=== PATIENT | male | born 1995 | race Caucasian/White ===

== ENCOUNTER 2018-10-25 20:00 | Emergency (ER) | payer MEDICAID, OTHER ==
[~2018-10-25] VITALS: Ht 170.2 cm; Wt 81.5 kg
[2018-10-25 20:06] VITALS: Ht 170.2 cm; Wt 81.5 kg
[2018-10-25] MEDS ORDERED: morphine LIQ (10 MG/5 ML) CUP PO ONE (20:30)
--- NOTE | 2018-10-25 21:40 | ERD ---
ER Documentation Chief Complaint Chief Complaint EDWARD FELL, HIT NOSE TODAY [id number] AGO HPI 23-year-old male, presents to the emergency department, brought in by family, complaining of nasal pain and bleeding after a mechanical fall that occurred approximately 30 minutes prior to arrival. The patient denies loss of consciousness, no blurred vision. The pain is dull, constant, 6/10. ROS All systems reviewed and are negative except as per history of present illness. Medications Home Meds Active Scripts Ibuprofen* (Motrin*) 600 Mg Tab, 600 MG PO Q8 for 5 Days, #15 TAB Prov:ADRIEL TAM MD 10/25/18 Oxymetazoline Hcl* (Afrin [place]*) 0.05% - 15 Ml [place], 2 SPRAYS NASAL BID for 5 Days, #1 EA to each nostril Prov:ADRIEL TAM MD 10/25/18 Allergies Allergies: Coded Allergies: No Known Allergy (Unverified , 10/25/18) PMhx/Soc Medical and Surgical Hx: pt denies Medical Hx, pt denies Surgical Hx Hx Alcohol Use: Yes Hx Substance Use: No Hx Tobacco Use: No Smoking Status: Current every day smoker FmHx Family History: diabetes; No coronary disease Physical Exam Vitals Vital Signs Date Temp Pulse Resp B/P (MAP) Pulse Ox O2 O2 Flow FiO2 Time Delivery Rate 10/25/18 98.7 79 17 125/78 99 Room Air 22:21 (94) 10/25/18 99.2 95 19 136/81 99 20:06 (99) Physical Exam Const: No acute distress Head: Right periorbital ecchymosis. Eyes: Normal Conjunctiva ENT: Severe deformity of the nasal dorsum, with mild bilateral epistaxis. Neck: Full range of motion. No meningismus. Resp: Clear to auscultation bilaterally Cardio: Regular rate and rhythm, no murmurs Abd: Soft, non tender, non distended. Normal bowel sounds Skin: No petechiae or rashes Back: No midline or flank tenderness Ext: No cyanosis, or edema Neur: Awake and alert Psych: Normal Mood and Affect Results 24 hrs Current Medications Medications Dose Sig/Abelino Start Time Status Last (Trade) Ordered Route PRN Stop Time Admin Dose Reason Admin Morphine 10 mg ONCE ONCE 10/25/18 DC 10/25/18 Sulfate PO 20:30 10/25/18 20:44 (morphine) 20:31 DIAGNOSTIC IMAGING REPORT Patient: ALEXANDREA YA : 1995 Age: 23 Sex: M MR #: [id number] DOS: 10/25/182028 Ordering MD: ADRIEL TAM MD Location: [facility] Room/Bed: PROCEDURE: CT facial bones without contrast CLINICAL INDICATION: Trauma with pain. TECHNIQUE: A CT of the facial bones was performed utilizing high-resolution axial images. Sagittal and coronal reformatted images were made. The CTDIvol is number mGy and the DLP is number mGy-cm. 3-D reconstructions were not performed. One or more the following dose reduction techniques were utilized: Automated exposure control, adjustment of the mA and / or kV according to patient's size, or use of iterative reconstruction technique. DICOM images are available. COMPARISON: None. FINDINGS: The zygomatic arches are intact. The orbital rims are intact. There is a fracture of the nasal bones involving both nasal ala and the distal bridge of the nose. The nasal septum is fractured anteriorly. Posteriorly, there is prominent rightward displacement of the nasal septum. This does not appear to be due to the current trauma and is either developmental or secondary to older trauma. The fragment of the right nasal ala is depressed medially. The left nasal ala are fracture is not displaced. The right nasal airway is severely stenosed in its midportion. The mandible is intact. The kerns of the paranasal sinuses are intact. The paranasal sinuses are clear. Soft tissue swelling is present around the nose Dental caries are evident. IMPRESSION: 1. Fractures of the nasal bones with prominent stenosis of the right nasal airway, probably developmental or secondary to an older injury. 2. Dental caries. RPTAT:AAJJ Physician Lizy Date Time Electronically viewed and signed by Physician Lizy on 10/25/2018 21:30 GW/ CC: ADRIEL TAM MD [id number] Procedures/MDM Differential diagnosis include but not limited to: Soft tissue contusion, sprain/strain, muscle spasm, fracture. Neurovascular exam grossly intact. Physical examination and clinical presentation consistent most likely with nasal bones fracture. During the ED course the patient remained stable, without complaints. A partial closed reduction of the fracture was attempted with previous consent of the patient and family, achieving better alignment of the septum. Results and clinical impression discussed with patient who agrees with management. The patient is stable to be treated outpatient and will be discharged home with recommendations to follow-up with ENT as soon as possible and close monitoring by his primary physician. The patient was instructed to follow up with the primary care provider in the next 48h. If symptoms persist, worsen or new symptoms develop, then patient should return to the ED immediately. Instructions explained and given to patient with acknowledgment and demonstrated understanding. Disclaimer: Inadvertent spelling and grammatical errors are likely due to EHR/dictation software use and do not reflect on the overall quality of patient care. Also, please note that the electronic time recorded on this note does not necessarily reflect the actual time of the patient encounter. Departure Diagnosis: Primary Impression: Nasal bone fractures Additional Impression: Acute head injury without loss of consciousness Condition: Stable Additional Instructions: Thank you very much for allowing us to participate in your care. Your health and safety is our top priority at [facility]. Call your primary care doctor TOMORROW for an appointment during the next 2-4 days and bring all the information and medications prescribed. Have prescriptions filled and follow precisely the directions on the label. If the symptoms get worse and your provider is unavailable, return to the Emergency Department immediately. ADRIEL TAM MD Oct 25, 2018 21:40
[2018-10-25] MEDS ORDERED: OXYM15SP34 NASAL (21:49)
[2018-10-25] MEDS ORDERED: IBUP-1542 PO (21:49)
[2018-10-25 22:21] VITALS: BP 125/78; PULSE 79; RESP 17
== END 2018-10-25 22:12 | disposition home or self-care (01) ==
LOC: FTE 20:00
DX: S02.2XXA Fracture of nasal bones, initial encounter for closed fracture (principal); F17.210 Nicotine dependence, cigarettes, uncomplicated; W18.39XA Other fall on same level, initial encounter; Y92.9 Unspecified place or not applicable
CPT/HCPCS: 70486; Z7502; Z7610